=== PATIENT | male | born 1995 | race Caucasian/White ===

== ENCOUNTER → 2020-12-01 07:50 | Outpatient (CLI) | payer BC, SELFPAY ==
[2020-12-01 08:36] LABS: Semen Viscosity Normal (Normal)
[2020-12-01 08:37] LABS: Motility Quality Good Progression (Mod-Rapid); Sperm Motility 80 % (50-90)
[2020-12-01 09:42] LABS: Sperm Count 94 mil/mm3 (20-160)
[2020-12-01 10:53] LABS: 3Hr Motility Quality Good Progression (Mod-Rapid); 3Hr Sperm Motility 60 % (50-60); Sperm Morphology Normal (Normal)
== END ==
PROVIDERS: Visit Provider Obstetrics & Gynecology
DX: Z31.41 Encounter for fertility testing (principal)
CPT/HCPCS: 89320